=== PATIENT | male | born 1995 | race Caucasian/White ===

== ENCOUNTER 2020-04-26 01:09 | Emergency (ER) | payer BC ==
[~2020-04-26] VITALS: Ht 177.8 cm; Wt 72.6 kg
[2020-04-26 01:11] VITALS: BP_SYST 120
--- NOTE | 2020-04-26 01:16 | NUR ---
Patient to ER bed 04 to gown for evaluation. Side rails up. Report given to AMANDO Molina
--- NOTE | 2020-04-26 01:16 | NUR ---
ER Dr. Christopher at bedside examining patient.
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
[2020-04-26] MEDS ORDERED: methocarbamoL 500 MG TABLET PO ONE (01:30)
[2020-04-26] MEDS ORDERED: IBUPROFEN 800 MG TABLET PO ONE (01:30)
--- NOTE | 2020-04-26 02:03 | NUR ---
patients reports pain improved to 3/10. MD danielle.
[2020-04-26 02:20] VITALS: BP_SYST 113
--- NOTE | 2020-04-26 02:20 | NUR ---
Patient given written and verbal discharge instructions and verbalizes understanding. ER MD discussed with patient the results and treatment provided. Patient in stable condition. ID arm band removed. Rx of IBUPROFEN AND METHOCARBAMOL given. Patient educated on pain management and to follow up with PMD. Pain Scale 3/10. Opportunity for questions provided and answered. Medication side effect fact sheet provided.
== END 2020-04-26 02:20 | disposition home or self-care (01) ==
LOC: SED 01:09
DX: S33.5XXA Sprain of ligaments of lumbar spine, initial encounter (principal); V49.9XXA Car occupant (driver) (passenger) injured in unspecified traffic accident, initial encounter; Y93.89 Activity, other specified; Y92.413 State road as the place of occurrence of the external cause; Y99.8 Other external cause status
CPT/HCPCS: 99283